=== PATIENT | female | born 1945 | race Caucasian/White ===

== ENCOUNTER → 2020-03-05 | Outpatient (CLI) | payer OTHER ==
[~2020-03-05] MED LIST: CATAPRES0.1 MG PO; INTERMEZZO3.5 MG PO; LEVO-T100 MCG PO; LISINOPRIL-HCT1 EAC1 PO; MIRALAX119 GM PO; PRAVACHOL 20 MG20 M1 PO; VERAPAMIL ER180 M1 PO; XANAX 0.25 MG0.25 MG PO; ZOLOFT 50 MG TA50 MG PO
== END ==
LOC: SJCVCIMAG 10:44 → SJCVC 10:44
PROVIDERS: ATTEND Internal Medicine Cardiovascular Disease
DX: I08.2 Rheumatic disorders of both aortic and tricuspid valves (principal); I11.9 Hypertensive heart disease without heart failure

== ENCOUNTER → 2020-03-11 | Outpatient (CLI) | payer OTHER | LOC: SJCVCIMAG 07:13 | PROVIDERS: ATTEND Internal Medicine Cardiovascular Disease | DX: I44.0 Atrioventricular block, first degree (principal); I10 Essential (primary) hypertension; E78.5 Hyperlipidemia, unspecified; E78.00 Pure hypercholesterolemia, unspecified; M19.90 Unspecified osteoarthritis, unspecified site; E03.9 Hypothyroidism, unspecified; Z82.49 Family history of ischemic heart disease and other diseases of the circulatory system; Z88.2 Allergy status to sulfonamides; Z88.8 Allergy status to other drugs, medicaments and biological substances ==